=== PATIENT | male | born 1950 | race Caucasian/White ===

== ENCOUNTER → 2022-10-11 10:09 | Outpatient (BNVA) | payer OTHER, SELFPAY | PROVIDERS: Visit Provider Internal Medicine Cardiovascular Disease | DX: R42 Dizziness and giddiness (principal); R06.02 Shortness of breath; R00.1 Bradycardia, unspecified; E78.5 Hyperlipidemia, unspecified; F17.200 Nicotine dependence, unspecified, uncomplicated; Z82.49 Family history of ischemic heart disease and other diseases of the circulatory system | CPT/HCPCS: 93005; 99204 ==

== ENCOUNTER 2022-10-22 09:22 | Outpatient (CLI) | payer OTHER, SELFPAY ==
--- NOTE | 2022-10-22 | ECG_ITS ---
[facility] Test Date: 2022-10-22 Pat Name: Conner Negron Department: Room: Gender: Male Warehouse Guard: Nasrin Becerril : 1950 Requested By: Karen Gonzales Order Number: [id number] Pardo MD: Karen Gonzales M.D. Interpretive Statements NAME OF STUDY: EXERCISE SESTAMIBI STRESS TEST INDICATION: Shortness of Breath on exertion Baseline blood pressure of 151/85 mm Hg, heart rate of 57 beats per minute and oxygen saturation of 96%. EKG showed sinus rhythm, normal axis with normal ST-Ts. The patient exercised for [6 minutes and 12 seconds] on a [standard Serafin protocol]. Patient attained a maximum heart rate of [148] beats per minute( [98] % of the maximum predicted heart rate) with a blood pressure at the peak exercise of [202/87]mm Hg and oxygen saturation of 98%. The EKG at the peak exercise revealed sinus tachycardia with no significant ST-T wave changes. Patient did not have any chest pain or any significant arrhythmis with the exercise.??? During the recovery phase, there were no new changes. ??? Blood pressure at the end of the recovery phase was 189/72 mm Hg with a heart rate of 82 beats per minute and oxygen saturation of 98%. ??? CONCLUSION: 1. Normal EKG response to treadmill exercise. 2. No exercise-induced chest pain or cardiac arrhythmia. 3. Good exercise tolerance, attained a maximum of 10.2 METs. 4. Baseline hypertension with hypertensive response to exercise. 5. Perfusion scan will be documented separately. Electronically Signed On 10-28-2022 8:52:43 CDT by Karen Gonzales M.D. [id number]
[2022-10-22 10:14] VITALS: BMI 24.4
--- NOTE | 2022-10-22 10:15 | NMCV_ITS ---
NM cole perf SPECT r/s* [id number] Conner Negron Age: 72 Gender: M : 1950 Exam Date: 10/22/2022 10:15 Ordering Phys: Karen Gonzales MD ([email or web address]) Technologist: CHAPO Sloan Exam Location: [facility] Indications: SHORTNESS OF BREATH, ISCHEMIC HEART DISEASE STRESS TEST Please see separate stress test report in [facility] for full findings IMAGE PROTOCOL Rest/Stress 1 Exercise Day Radiopharmaceutical Dose (mCi) Administration Site Administered by Rest: Tc-99m 10.5 IV CHAPO Sloan Sestamibi Stress:Tc-99m 32.9 IV CHAPO Gonzales Sestamibi Rest: 22-Oct-2022 60 Discovery 630 Stress: 22-Oct-2022 15 Discovery 630 Radiopharmaceutical was injected at 88 % maximum heart rate. Images obtained in supine and prone position. SPECT RESULTS Technical Quality: Excellent Raw Data Analysis: Normal Image Corrections: No attenuation or motion correction applied Summed Stress Score: 0 Summed Rest Score: 1 Summed Difference Score: 0 PERFUSION FINDINGS SPECT images demonstrate homogeneous tracer distribution throughout the myocardium. FUNCTIONAL RESULTS (calculated via Gated SPECT) Stress Image LV EF (%): 77 Stress EDV (mL):74 TID: 0.7 Stress ESV (mL):17 FUNCTIONAL FINDINGS: The left ventricle is normal in size. Transient Ischemia Dilatation of 0.7. The left ventricular ejection fraction is normal with a value of 77%. There is normal left ventricular wall thickening. Normal end-diastolic and end-systolic volumes. IMPRESSIONS 1. Myocardial perfusion imaging is normal. 2. Overall left ventricular systolic function is normal without regional wall motion abnormalities, LVEF=77%. 3. EKG portion of the study will be reported separately. 4. Scan indicates low risk for cardiac events. Karen Gonzales MD (Electronically Signed) Final Date: 24 October 2022 12:53 S
[2022-10-22 11:54] VITALS: BP 189/72; PULSE 78
== END 2022-10-22 09:23 | disposition home or self-care (01) ==
PROVIDERS: PCP Nurse Practitioner; Visit Provider Internal Medicine Cardiovascular Disease
DX: R06.02 Shortness of breath (principal); I25.9 Chronic ischemic heart disease, unspecified
CPT/HCPCS: 36415; 78452; 93017; A9500